=== PATIENT | male | born 1990 | race Caucasian/White ===

== ENCOUNTER 2024-11-11 21:13 | Outpatient (REF) | payer BC, SELFPAY ==
[2024-11-11 19:55] LABS: Abs Immature Grans 0.02 10^3/uL (0.0-0.06); Absolute Basophil Count 0.02 10^3/uL (0.0-0.2); Absolute Eosinophil Count 0.05 10^3/uL (0.0-0.7); Absolute Lymphocyte Count 1.06 10^3/uL (1.2-3.4); Absolute Neutrophil Count 3.03 10^3/uL (1.2-6.7); Basophils % 0.4 %; Eosinophils % 1.1 %; HCT 48.6 % (40.0-50.0); HGB 16.1 g/dL (13.5-17.5); Immature Grans % 0.4 %; Lymphocytes % 23.1 %; MCH 28.1 pg (27.0-33.0); MCHC 33.1 % (32.0-36.0); MCV 85 fL (80-95); MPV 10.5 fL (8.0-11.0); Monocytes % 8.7 %; Neutrophils % 66.3 %; Platelet Count 201 10^3/uL (130-400); RBC 5.72 10^6/uL (4.36-5.78); RDW 11.9 % (11.8-14.1); RDW-SD 37.1 fL; WBC 4.58 10^3/uL (4.4-10.8)
[2024-11-11 20:50] LABS: ALT 45 U/L (16-63); AST 25 U/L (15-37); Albumin 4.4 g/dL (3.4-5.0); Alkaline Phosphatase 69 U/L (46-116); Anion Gap 5.7 mmol/L (3-11); BUN 10 mg/dL (7-18); Bilirubin, Total 0.6 mg/dL (0.2-1.0); CO2 31.3 mmol/L (21.0-32.0); CREATININE 0.9 mg/dL (0.70-1.30); Calcium 9.5 mg/dL (8.5-10.1); Chloride 104 mmol/L (98-107); Estimated GFR 113.51 (mL/min/1.73m2); Glucose 85 mg/dL (74-106); Potassium 4.2 mmol/L (3.5-5.1); Sodium 141 mmol/L (136-145); Total Protein 7.4 g/dL (6.4-8.2)
[2024-11-11 21:21] LABS: Lipase 29 U/L (<78)
[2024-11-15 11:41] LABS: IgA 293 mg/dL (85-499); Interpretation (See Note); Tissue Transglutaminase IgA <4.0 CU (<20.0)
== END 2024-11-11 21:14 | disposition home or self-care (01) ==
LOC: NCHCN 21:13
PROVIDERS: Visit Provider Nurse Practitioner Family
DX: R14.0 Abdominal distension (gaseous) (principal); K92.1 Melena
CPT/HCPCS: 80053; 82784; 83516; 83690; 85025

== ENCOUNTER 2025-02-09 14:40 | Outpatient (REF) | payer BC, SELFPAY ==
[2025-02-09 15:55] LABS: TSH 1.19 uIU/mL (0.36-3.74)
[2025-02-09 16:38] LABS: Vitamin B12 546 pg/mL (193-986); Vitamin D 25 Total 24 ng/mL (30-100)
[2025-02-16 09:00] LABS: Methylmalonic Acid 0.11 nmol/mL (<=0.40)
== END 2025-02-09 14:41 | disposition home or self-care (01) ==
LOC: NCHCN 14:40
PROVIDERS: Visit Provider Physician Assistant
DX: G62.9 Polyneuropathy, unspecified (principal)
CPT/HCPCS: 80186; 82306; 82607; 84439; 84443